=== PATIENT | female | born 1990 | race Caucasian/White ===

== ENCOUNTER 2021-03-16 17:33 | Emergency (ER) | payer OTHER, MEDICAID ==
[~2021-03-16] VITALS: Ht 162.6 cm; Wt 83.9 kg
[2021-03-16] MEDS ORDERED: LOMAIRA8 MG PO (17:43)
[2021-03-16 18:41] LABS: ABSOLUTE BASOPHILS 0.1 thou/uL (0.0-0.2); ABSOLUTE EOSINOPHILS 0.1 thou/uL (0.0-0.7); ABSOLUTE LYMPHOCYTES 1.3 thou/uL (0.8-5.3); ABSOLUTE MONOCYTES 1.5 thou/uL (0.0-1.2); ABSOLUTE NEUTROPHILS 16.1 thou/uL (1.6-8.1); BASOPHILS 0.4 %; EOSINOPHILS 0.7 %; HEMATOCRIT 38.6 % (37.0-47.0); HEMOGLOBIN 13.6 gm/dL (12.0-15.0); MCH 28.4 pg (26.0-34.0); MCHC 35.2 g/dL (28.0-37.0); MCV 80.6 fL (80.0-100.0); MONOCYTES 7.8 %; MPV 8.9 fl. (7.2-11.1); NUCLEATED RBCS 0 /100WBC; PLATELET COUNT* 206 thou/uL (150-400); POLYS 84.1 %; RBC 4.79 mil/uL (4.20-5.00); RDW-CV 14.9 % (10.5-14.5); WBC 19.1 thou/uL (4.0-11.0)
[2021-03-16 18:51] LABS: CALCIUM 8.6 mg/dL (8.5-10.1); CREATININE 0.8 mg/dL (0.6-1.3); POTASSIUM 3.6 mmol/L (3.5-5.1)
[2021-03-16 18:56] LABS: ALBUMIN 3.9 g/dL (3.4-5.0); TOTAL BILIRUBIN 0.4 mg/dL (<0.1-1.0); TOTAL PROTEIN 7.8 g/dL (6.4-8.2)
[2021-03-16 22:10] VITALS: BP 136/83
== END 2021-03-16 22:10 | disposition short-term general hospital (02) ==
LOC: M.ERS 17:33
PROVIDERS: Physician Assistant
DX: J05.10 Acute epiglottitis without obstruction (principal); Z87.442 Personal history of urinary calculi; Z20.822 Contact with and (suspected) exposure to COVID-19

== ENCOUNTER 2021-08-07 21:18 | Emergency (ER) | payer OTHER, MEDICAID ==
[~2021-08-07] VITALS: Ht 160 cm; Wt 93.0 kg
[~2021-08-07 21:18] MED LIST: LOMAIRA8 MG PO
[2021-08-07] MEDS ORDERED: ADIPEX-P37.5 MG PO (21:45)
[2021-08-08] MEDS ORDERED: BUTALB-APAP-CA1 EACH PO (00:28)
[2021-08-08] MEDS ORDERED: ZOFRAN ODT4 MG PO (00:28)
[2021-08-08] MEDS ORDERED: IBUPROFEN 800800 MG PO (00:28)
[2021-08-08 00:40] VITALS: BP 110/70
== END 2021-08-08 00:40 | disposition home or self-care (01) ==
LOC: M.ERS 21:18
DX: G43.909 Migraine, unspecified, not intractable, without status migrainosus (principal); Z98.51 Tubal ligation status; Z87.442 Personal history of urinary calculi; Z79.899 Other long term (current) drug therapy; Z88.1 Allergy status to other antibiotic agents